=== PATIENT | female | born 1940 | race African-American/Black ===

== ENCOUNTER 2018-03-26 03:09 | Inpatient (IN) ==
[2018-03-26] MEDS ORDERED: ALBUTEROL/IPRATROPIUM 3 ML NEB RESP TX STA (03:53)
[2018-03-26 04:23] LABS: Alanine Aminotransferase 22 U/L (13-56); Albumin 3.5 G/DL (3.4-5.0); Alkaline Phosphatase 125 U/L (45-117); Aspartate Amino Transferase 20 U/L (0-37); Blood Urea Nitrogen 15 MG/DL (7-18); Glucose 273 MG/DL (74-106); Osmolality,Calculated 287.5 MOS/KG (273-304); Potassium 4.2 MMOL/L (3.5-5.1); Sodium 139 MMOL/L (136-145); Troponin I Only < 0.015 NG/ML (0.00-0.045)
[2018-03-26 08:28] LABS: Basophils % 0.3 % (0.0-0.8); Hematocrit 25.1 VOL% (35.7-47.0); Immature Granulocytes % 4.9 %; Lymphocytes # 1.2 10*3/uL (1.4-4.0); Lymphocytes % 18.9 % (21.3-54.2); Mean Corpuscular HGB Conc 31.9 GM/DL (32-36); Mean Corpuscular Hemoglobin 29 PG (27-34); Mean Corpuscular Volume 90.9 FL (87-102); Monocytes # 0.7 10*3/uL (0.11-0.8); Monocytes % 10.9 % (1.7-12.7); Red Blood Count 2.76 MC/CUMM (3.8-5.5); Red Cell Distribution Width 17.6 % (9.3-17.3); White Blood Count 6.2 T/CUMM (4-12)
[2018-03-26 08:47] LABS: Platelet Count 28 T/CUMM (130-400)
[2018-03-26 08:57] LABS: Anisocytosis 1+; Atypical Lymphocytes Few; Band Neutrophils 2 % (0-10); Hypochromasia 1+; Lymphocytes 28 % (20-55); Microcytosis 1+; Myelocytes 1 %; Polychromasia Slight; Segmented Neutrophils 65 % (50-85); Total Cells Counted 100
[2018-03-26 08:58] LABS: Ovalocytes Few; Platelet Estimate Decreased
[2018-03-26] MEDS ORDERED: DEXTROSE 50% 25 GM/50 ML VIAL IV PRN ×2 (10:41→15:55)
[2018-03-26] MEDS ORDERED: GLUCAGON 1 MG VIAL IM PRN ×2 (10:41→15:55)
[2018-03-26] MEDS ORDERED: POTASSIUM CHLORIDE RIDER 10 MEQ in PREMIX 1 EACH IV PRN (11:17)
[2018-03-26] MEDS ORDERED: MAGNESIUM SULF RIDER 2 GM in PREMIX 1 EACH IV PRN (11:17)
[2018-03-26] MEDS ORDERED: MAGNESIUM SULF RIDER 4 GM in PREMIX 1 EACH IV PRN (11:17)
[2018-03-26] MEDS: cefTRIAXone 1,000 MG in SYRINGE 1 EACH IV SCH (12:30)
[2018-03-26 12:39] LABS: Free T4 (Free Thyroxine) 0.97 NG/DL (0.76-1.46); Risk Ratio 2.63; VLDL CHOLESTEROL 20.4 MG/DL
[2018-03-26 12:47] LABS: Apearance,Urine CLEAR (Clear); Bilirubin,Urine Negative (Negative); Blood, Urine Small mg/dL (Negative); Glucose,Urine (UA) 50 mg/dL (Negative); Ketones,Urine Negative (Negative); Nitrite,Urine Negative (Negative); Protein,Urine 100 MG/DL; RBC,Urine 6 /HPF (0-4); Squamous Epithelial Cell,Urine Occasional /HPF (0-10); Urine Color Yellow (Yellow); Urine Specific Gravity 1.032 (1.001-1.035); Urine Urobilinogen < 2.0 EU/DL (0.2-1.0); WBC,Urine 1 /HPF (0-6)
[2018-03-26] MEDS: AZITHROMYCIN INJ 500 MG in SODIUM CHLORIDE 0.9% 250 ML IV SCH (12:49)
[2018-03-26] MEDS: ALBUTEROL/IPRATROPIUM 3 ML NEB RESP TX SCH ×2 (14:51→19:21)
[2018-03-26] MEDS ORDERED: FUROSEMIDE 40 MG/4 ML VIAL IV ONE (15:53)
[2018-03-26 16:22] LABS: Basophils % 0.3 % (0.0-0.8); Eosinophils % 0.2 % (0.00-10.9); Hematocrit 26.3 VOL% (35.7-47.0); Immature Granulocytes Absolute 0.31 #; Lymphocytes # 1.5 10*3/uL (1.4-4.0); Lymphocytes % 23.5 % (21.3-54.2); Mean Corpuscular HGB Conc 30.4 GM/DL (32-36); Mean Corpuscular Hemoglobin 28 PG (27-34); Mean Corpuscular Volume 92.6 FL (87-102); Monocytes # 0.8 10*3/uL (0.11-0.8); Monocytes % 12.3 % (1.7-12.7); NRBC # 0.02 10*3/uL; Neutrophils # 3.6 10*3/uL (1.4-7.4); Neutrophils % 58.7 % (38.7-73.9); Red Blood Count 2.84 MC/CUMM (3.8-5.5); Red Cell Distribution Width 17.7 % (9.3-17.3); White Blood Count 6.2 T/CUMM (4-12)
[2018-03-26 16:25] LABS: Platelet Count 33 T/CUMM (130-400)
[2018-03-26 16:42] LABS: Eosinophils 1 % (0-10); Lymphocytes 24 % (20-55); Myelocytes 1 %; Promyelocytes 1 %; Segmented Neutrophils 60 % (50-85); Total Cells Counted 100
[2018-03-26 16:43] LABS: Anisocytosis 1+; Macrocytosis 1+
[2018-03-26 16:45] LABS: Hypochromasia 2+; Platelet Estimate Decreased; Schistocytes Few
[2018-03-26 16:46] LABS: Polychromasia Few
[2018-03-26] MEDS: amLODIPine 10 MG TABLET PO SCH (17:38)
[2018-03-26] MEDS: INSULIN LISPRO 100 UNIT/ML SUBCUT SCH ×2 (17:38→21:37)
[2018-03-26] MEDS: POTASSIUM CHLORIDE 20 MEQ TABLET PO SCH (20:46)
[2018-03-26] MEDS: METOPROLOL TARTRATE 100 MG TABLET PO SCH (20:46)
[2018-03-26] MEDS: MAGNESIUM OXIDE 400 MG TABLET PO SCH (20:47)
[2018-03-26] MEDS: FERROUS SULFATE 325 MG TABLET PO SCH (20:47)
[2018-03-26] MEDS: guaiFENesin/DM ER 600-30 MG TABLET PO SCH (20:47)
[2018-03-26] MEDS: INSULIN GLARGINE 100 UNIT/ML SUBCUT SCH (21:38)
[2018-03-27] MEDS: ALBUTEROL/IPRATROPIUM 3 ML NEB RESP TX SCH ×4 (01:50→20:38)
[2018-03-27 05:29] LABS: Basophils % 0.4 % (0.0-0.8); Hematocrit 26.7 VOL% (35.7-47.0); Hemoglobin 8.3 GM/DL (12.0-16.0); Immature Granulocytes % 4.8 %; Immature Granulocytes Absolute 0.25 #; Lymphocytes % 18.4 % (21.3-54.2); Mean Corpuscular HGB Conc 31.1 GM/DL (32-36); Mean Corpuscular Hemoglobin 28 PG (27-34); Mean Corpuscular Volume 90.8 FL (87-102); Monocytes # 0.6 10*3/uL (0.11-0.8); Monocytes % 10.7 % (1.7-12.7); Neutrophils # 3.4 10*3/uL (1.4-7.4); Neutrophils % 65.7 % (38.7-73.9); Red Blood Count 2.94 MC/CUMM (3.8-5.5); Red Cell Distribution Width 17.4 % (9.3-17.3); White Blood Count 5.2 T/CUMM (4-12)
[2018-03-27 05:34] LABS: Platelet Count 27 T/CUMM (130-400)
[2018-03-27 06:02] LABS: Band Neutrophils 1 % (0-10); Lymphocytes 11 % (20-55); Segmented Neutrophils 75 % (50-85)
[2018-03-27 06:03] LABS: Hypochromasia 1+; Ovalocytes 1+; Polychromasia Few
[2018-03-27 06:04] LABS: Albumin 2.9 G/DL (3.4-5.0); Anisocytosis 1+; Bilirubin,Total 1.3 MG/DL (0.2-1.0); Calcium 8.7 MG/DL (8.5-10.1); Macrocytosis 1+; Osmolality,Calculated 288.7 MOS/KG (273-304); Total Protein 5.9 G/DL (6.4-8.3)
[2018-03-27 06:05] LABS: Elliptocytes Few; Platelet Estimate Decreased; Total Cells Counted 100
[2018-03-27] MEDS: INSULIN LISPRO 100 UNIT/ML SUBCUT SCH ×4 (08:58→21:52)
[2018-03-27] MEDS: POTASSIUM CHLORIDE 20 MEQ TABLET PO SCH ×2 (08:59→21:49)
[2018-03-27] MEDS: glipiZIDE 10 MG TABLET PO SCH (08:59)
[2018-03-27] MEDS: MAGNESIUM OXIDE 400 MG TABLET PO SCH ×2 (09:00→21:50)
[2018-03-27] MEDS: METOPROLOL TARTRATE 100 MG TABLET PO SCH ×2 (09:00→21:50)
[2018-03-27] MEDS: amLODIPine 10 MG TABLET PO SCH (09:00)
[2018-03-27] MEDS: guaiFENesin/DM ER 600-30 MG TABLET PO SCH ×2 (09:00→21:50)
[2018-03-27] MEDS: FERROUS SULFATE 325 MG TABLET PO SCH ×2 (09:00→21:50)
[2018-03-27] MEDS: FLUoxetine 10 MG CAPSULE PO SCH (09:00)
[2018-03-27] MEDS: cefTRIAXone 1,000 MG in SYRINGE 1 EACH IV SCH (11:15)
[2018-03-27] MEDS: AZITHROMYCIN INJ 500 MG in SODIUM CHLORIDE 0.9% 250 ML IV SCH (13:16)
[2018-03-27] MEDS ORDERED: FUROSEMIDE 40 MG/4 ML VIAL IV ONE (13:51)
[2018-03-27] MEDS: INSULIN GLARGINE 100 UNIT/ML SUBCUT SCH (21:51)
[2018-03-28] MEDS: ALBUTEROL/IPRATROPIUM 3 ML NEB RESP TX SCH ×4 (00:13→19:40)
[2018-03-28] MEDS: ALBUTEROL 2.5 MG/3 ML NEB RESP TX PRN (05:30)
[2018-03-28] MEDS: FUROSEMIDE 40 MG/4 ML VIAL IV SCH ×2 (05:43→15:55)
[2018-03-28] MEDS: INSULIN LISPRO 100 UNIT/ML SUBCUT SCH ×4 (08:23→21:48)
[2018-03-28] MEDS: guaiFENesin/DM ER 600-30 MG TABLET PO SCH ×2 (08:25→21:48)
[2018-03-28] MEDS: FLUoxetine 10 MG CAPSULE PO SCH (08:25)
[2018-03-28] MEDS: FERROUS SULFATE 325 MG TABLET PO SCH ×2 (08:25→21:48)
[2018-03-28] MEDS: POTASSIUM CHLORIDE 20 MEQ TABLET PO SCH ×2 (08:25→21:47)
[2018-03-28] MEDS: MAGNESIUM OXIDE 400 MG TABLET PO SCH ×2 (08:25→21:48)
[2018-03-28] MEDS: METOPROLOL TARTRATE 100 MG TABLET PO SCH ×2 (08:25→21:48)
[2018-03-28] MEDS: amLODIPine 10 MG TABLET PO SCH (08:25)
[2018-03-28] MEDS: glipiZIDE 10 MG TABLET PO SCH (08:25)
[2018-03-28] MEDS: AZITHROMYCIN INJ 500 MG in SODIUM CHLORIDE 0.9% 250 ML IV SCH (12:42)
[2018-03-28] MEDS: cefTRIAXone 1,000 MG in SYRINGE 1 EACH IV SCH (12:42)
[2018-03-28 17:58] LABS: PT Patient Result 10.6 SECS
[2018-03-28 18:25] LABS: Total Protein 6.3 G/DL (6.4-8.3)
[2018-03-28] MEDS: INSULIN GLARGINE 100 UNIT/ML SUBCUT SCH (21:48)
[2018-03-29] MEDS: ALBUTEROL/IPRATROPIUM 3 ML NEB RESP TX SCH ×4 (00:23→19:35)
[2018-03-29] MEDS: INSULIN LISPRO 100 UNIT/ML SUBCUT SCH ×4 (08:44→20:47)
[2018-03-29] MEDS: FUROSEMIDE 40 MG/4 ML VIAL IV SCH ×2 (09:18→16:06)
[2018-03-29] MEDS: FLUoxetine 10 MG CAPSULE PO SCH (09:19)
[2018-03-29] MEDS: METOPROLOL TARTRATE 100 MG TABLET PO SCH ×2 (09:19→20:46)
[2018-03-29] MEDS: glipiZIDE 10 MG TABLET PO SCH (09:19)
[2018-03-29] MEDS: guaiFENesin/DM ER 600-30 MG TABLET PO SCH ×2 (09:19→20:46)
[2018-03-29] MEDS: POTASSIUM CHLORIDE 20 MEQ TABLET PO SCH ×2 (09:20→20:46)
[2018-03-29] MEDS: FERROUS SULFATE 325 MG TABLET PO SCH ×2 (09:20→20:46)
[2018-03-29] MEDS: amLODIPine 10 MG TABLET PO SCH (09:20)
[2018-03-29] MEDS: MAGNESIUM OXIDE 400 MG TABLET PO SCH ×2 (09:20→20:46)
[2018-03-29] MEDS ORDERED: SODIUM CHLORIDE 0.9% 1,000 ML IV PRN (09:43)
[2018-03-29] MEDS: cefTRIAXone 1,000 MG in SYRINGE 1 EACH IV SCH (11:14)
[2018-03-29] MEDS: AZITHROMYCIN INJ 500 MG in SODIUM CHLORIDE 0.9% 250 ML IV SCH (11:16)
[2018-03-29 16:01] LABS: Total Protein,Pleural Fluid 2.5 G/DL
[2018-03-29 16:58] LABS: RBC,Pleural Fluid > 100000 T/CUMM
[2018-03-29 17:20] LABS: Lymphocytes,Pleural Fluid 73 %; Monocytes,Pleural Fluid 11 %; Neutrophils,Pleural Fluid 16 %
[2018-03-29] MEDS: INSULIN GLARGINE 100 UNIT/ML SUBCUT SCH (20:46)
[2018-03-30] MEDS: ALBUTEROL/IPRATROPIUM 3 ML NEB RESP TX SCH ×4 (00:26→19:55)
[2018-03-30 05:56] LABS: Basophils % 0.4 % (0.0-0.8); Eosinophils % 0.2 % (0.00-10.9); Hematocrit 25.3 VOL% (35.7-47.0); Hemoglobin 7.7 GM/DL (12.0-16.0); Immature Granulocytes % 4.6 %; Immature Granulocytes Absolute 0.25 #; Lymphocytes % 18.2 % (21.3-54.2); Mean Corpuscular HGB Conc 30.4 GM/DL (32-36); Mean Corpuscular Hemoglobin 28 PG (27-34); Mean Corpuscular Volume 91.7 FL (87-102); Mean Platelet Volume 9.9 FL (9.6-12.0); Monocytes # 0.5 10*3/uL (0.11-0.8); Monocytes % 8.8 % (1.7-12.7); Neutrophils # 3.7 10*3/uL (1.4-7.4); Neutrophils % 67.8 % (38.7-73.9); Platelet Count 175 T/CUMM (130-400); Red Blood Count 2.76 MC/CUMM (3.8-5.5); Red Cell Distribution Width 18.3 % (9.3-17.3); White Blood Count 5.5 T/CUMM (4-12)
[2018-03-30 06:23] LABS: Hypochromasia 2+; Lymphocytes 24 % (20-55); Segmented Neutrophils 69 % (50-85); Total Cells Counted 100
[2018-03-30 06:24] LABS: Microcytosis 1+; Ovalocytes Slight; Platelet Estimate Adequate
[2018-03-30 06:25] LABS: Atypical Lymphocytes Few
[2018-03-30 06:27] LABS: Calcium 8.5 MG/DL (8.5-10.1); Potassium 4.1 MMOL/L (3.5-5.1)
[2018-03-30] MEDS ORDERED: SODIUM CHLORIDE 0.9% 1,000 ML IV PRN (07:32)
[2018-03-30] MEDS ORDERED: FUROSEMIDE 20 MG/2 ML VIAL IV ONE (07:34)
[2018-03-30] MEDS: FUROSEMIDE 40 MG/4 ML VIAL IV SCH ×2 (09:18→15:36)
[2018-03-30] MEDS: POTASSIUM CHLORIDE 20 MEQ TABLET PO SCH ×2 (09:19→22:27)
[2018-03-30] MEDS: guaiFENesin/DM ER 600-30 MG TABLET PO SCH ×2 (09:20→22:27)
[2018-03-30] MEDS: FERROUS SULFATE 325 MG TABLET PO SCH ×2 (09:20→22:27)
[2018-03-30] MEDS: glipiZIDE 10 MG TABLET PO SCH (09:20)
[2018-03-30] MEDS: MAGNESIUM OXIDE 400 MG TABLET PO SCH ×2 (09:20→22:27)
[2018-03-30] MEDS: amLODIPine 10 MG TABLET PO SCH (09:20)
[2018-03-30] MEDS: METOPROLOL TARTRATE 100 MG TABLET PO SCH ×2 (09:29→22:27)
[2018-03-30] MEDS: FLUoxetine 10 MG CAPSULE PO SCH (09:29)
[2018-03-30] MEDS: INSULIN LISPRO 100 UNIT/ML SUBCUT SCH ×4 (09:29→22:26)
[2018-03-30] MEDS: AZITHROMYCIN INJ 500 MG in SODIUM CHLORIDE 0.9% 250 ML IV SCH (10:46)
[2018-03-30] MEDS: cefTRIAXone 1,000 MG in SYRINGE 1 EACH IV SCH (12:31)
[2018-03-30] MEDS: INSULIN GLARGINE 100 UNIT/ML SUBCUT SCH (22:28)
[2018-03-31] MEDS: ALBUTEROL/IPRATROPIUM 3 ML NEB RESP TX SCH ×4 (01:03→19:09)
[2018-03-31 05:58] LABS: Basophils # 0.1 10*3/uL (0.0-0.2); Basophils % 0.9 % (0.0-0.8); Eosinophils % 0.6 % (0.00-10.9); Hematocrit 31.8 VOL% (35.7-47.0); Hemoglobin 10.1 GM/DL (12.0-16.0); Immature Granulocytes % 5.1 %; Immature Granulocytes Absolute 0.28 #; Lymphocytes # 1.2 10*3/uL (1.4-4.0); Lymphocytes % 22.4 % (21.3-54.2); Mean Corpuscular HGB Conc 31.8 GM/DL (32-36); Mean Corpuscular Hemoglobin 29 PG (27-34); Mean Corpuscular Volume 89.6 FL (87-102); Mean Platelet Volume 10.9 FL (9.6-12.0); Monocytes # 0.6 10*3/uL (0.11-0.8); Monocytes % 10.7 % (1.7-12.7); Neutrophils # 3.3 10*3/uL (1.4-7.4); Neutrophils % 60.3 % (38.7-73.9); Platelet Count 114 T/CUMM (130-400); Red Blood Count 3.55 MC/CUMM (3.8-5.5); Red Cell Distribution Width 17.8 % (9.3-17.3); White Blood Count 5.4 T/CUMM (4-12)
[2018-03-31 06:22] LABS: Band Neutrophils 1 % (0-10); Lymphocytes 28 % (20-55); Segmented Neutrophils 61 % (50-85); Total Cells Counted 100
[2018-03-31 06:23] LABS: Anisocytosis 1+; Hypochromasia 1+; Macrocytosis Slight; Microcytosis Slight
[2018-03-31 06:24] LABS: Platelet Estimate Decreased; Polychromasia Slight
[2018-03-31 06:39] LABS: Calcium 8.2 MG/DL (8.5-10.1); Potassium 4.1 MMOL/L (3.5-5.1)
[2018-03-31] MEDS: ALBUTEROL 2.5 MG/3 ML NEB RESP TX PRN ×2 (08:14→08:17)
[2018-03-31] MEDS: INSULIN LISPRO 100 UNIT/ML SUBCUT SCH ×5 (09:04→21:07)
[2018-03-31] MEDS: FERROUS SULFATE 325 MG TABLET PO SCH ×2 (09:09→21:01)
[2018-03-31] MEDS: METOPROLOL TARTRATE 100 MG TABLET PO SCH ×2 (09:09→21:03)
[2018-03-31] MEDS: glipiZIDE 10 MG TABLET PO SCH (09:09)
[2018-03-31] MEDS: amLODIPine 10 MG TABLET PO SCH (09:09)
[2018-03-31] MEDS: FUROSEMIDE 40 MG/4 ML VIAL IV SCH ×2 (09:09→16:13)
[2018-03-31] MEDS: guaiFENesin/DM ER 600-30 MG TABLET PO SCH ×2 (09:09→21:01)
[2018-03-31] MEDS: MAGNESIUM OXIDE 400 MG TABLET PO SCH ×2 (09:09→21:01)
[2018-03-31] MEDS: FLUoxetine 10 MG CAPSULE PO SCH (09:09)
[2018-03-31] MEDS: POTASSIUM CHLORIDE 20 MEQ TABLET PO SCH ×2 (09:09→21:01)
[2018-03-31] MEDS: cefTRIAXone 1,000 MG in SYRINGE 1 EACH IV SCH (11:25)
[2018-03-31] MEDS: AZITHROMYCIN INJ 500 MG in SODIUM CHLORIDE 0.9% 250 ML IV SCH (11:30)
[2018-03-31] MEDS: INSULIN GLARGINE 100 UNIT/ML SUBCUT SCH ×2 (21:01→21:09)
[2018-04-01] MEDS: ALBUTEROL/IPRATROPIUM 3 ML NEB RESP TX SCH ×3 (00:10→13:28)
[2018-04-01 05:38] LABS: Basophils % 0.4 % (0.0-0.8); Eosinophils # 0.1 10*3/uL (0.0-0.87); Hematocrit 31.5 VOL% (35.7-47.0); Hemoglobin 9.9 GM/DL (12.0-16.0); Immature Granulocytes % 4.3 %; Immature Granulocytes Absolute 0.21 #; Lymphocytes # 1.3 10*3/uL (1.4-4.0); Mean Corpuscular HGB Conc 31.4 GM/DL (32-36); Mean Corpuscular Hemoglobin 29 PG (27-34); Mean Corpuscular Volume 90.8 FL (87-102); Mean Platelet Volume 10.1 FL (9.6-12.0); Monocytes # 0.6 10*3/uL (0.11-0.8); Monocytes % 12.5 % (1.7-12.7); Neutrophils # 2.7 10*3/uL (1.4-7.4); Neutrophils % 55.8 % (38.7-73.9); Platelet Count 93 T/CUMM (130-400); Red Blood Count 3.47 MC/CUMM (3.8-5.5); Red Cell Distribution Width 17.7 % (9.3-17.3); White Blood Count 4.9 T/CUMM (4-12)
[2018-04-01 06:04] LABS: Calcium 8.6 MG/DL (8.5-10.1); Potassium 4.2 MMOL/L (3.5-5.1)
[2018-04-01 06:42] LABS: Hypochromasia 2+; Lymphocytes 17 % (20-55); Platelet Estimate Decreased; Segmented Neutrophils 74 % (50-85); Total Cells Counted 100
[2018-04-01] MEDS: glipiZIDE 10 MG TABLET PO SCH (09:20)
[2018-04-01] MEDS: POTASSIUM CHLORIDE 20 MEQ TABLET PO SCH (09:20)
[2018-04-01] MEDS: FLUoxetine 10 MG CAPSULE PO SCH (09:20)
[2018-04-01] MEDS: METOPROLOL TARTRATE 100 MG TABLET PO SCH (09:20)
[2018-04-01] MEDS: FUROSEMIDE 40 MG/4 ML VIAL IV SCH ×2 (09:20→09:24)
[2018-04-01] MEDS: amLODIPine 10 MG TABLET PO SCH (09:20)
[2018-04-01] MEDS: guaiFENesin/DM ER 600-30 MG TABLET PO SCH (09:20)
[2018-04-01] MEDS: FERROUS SULFATE 325 MG TABLET PO SCH (09:20)
[2018-04-01] MEDS: MAGNESIUM OXIDE 400 MG TABLET PO SCH (09:20)
[2018-04-01] MEDS: INSULIN LISPRO 100 UNIT/ML SUBCUT SCH ×2 (09:21→12:50)
[2018-04-01 11:46] VITALS: BP 142/69
[2018-04-01] MEDS: AZITHROMYCIN INJ 500 MG in SODIUM CHLORIDE 0.9% 250 ML IV SCH (12:50)
[2018-04-01] MEDS: cefTRIAXone 1,000 MG in SYRINGE 1 EACH IV SCH (12:50)
== END 2018-04-01 13:45 | disposition home health service (06) | DRG 291 ==
LOC: EDBD → EDUNIT# → N.ED 03:09 → SUATTDRO 08:26 → N.EDINP 14:11 → N.TELEN 14:14
PROVIDERS: ADMIT Internal Medicine; ATTEND Internal Medicine

== ENCOUNTER 2018-06-29 12:37 | Observation (INO) ==
[2018-06-29 13:27] LABS: Basophils % 0.5 % (0.0-0.8); Hematocrit 29.6 VOL% (35.7-47.0); Immature Granulocytes % 2.8 %; Immature Granulocytes Absolute 0.11 #; Lymphocytes # 1.3 10*3/uL (1.4-4.0); Lymphocytes % 32.4 % (21.3-54.2); Mean Corpuscular HGB Conc 30.4 GM/DL (32-36); Mean Corpuscular Hemoglobin 29 PG (27-34); Mean Corpuscular Volume 95.2 FL (87-102); Monocytes # 0.4 10*3/uL (0.11-0.8); Monocytes % 9.3 % (1.7-12.7); Neutrophils # 2.1 10*3/uL (1.4-7.4); Red Blood Count 3.11 MC/CUMM (3.8-5.5); Red Cell Distribution Width 18.2 % (9.3-17.3); White Blood Count 3.9 T/CUMM (4-12)
[2018-06-29 13:47] LABS: Platelet Count 52 T/CUMM (130-400)
[2018-06-29 13:54] LABS: Albumin 3.3 G/DL (3.4-5.0); Bilirubin,Total 0.9 MG/DL (0.2-1.0); Calcium 8.8 MG/DL (8.5-10.1); Osmolality,Calculated 285.3 MOS/KG (273-304); Potassium 4.3 MMOL/L (3.5-5.1); Total Protein 7.3 G/DL (6.4-8.3)
[2018-06-29 13:55] LABS: PT Patient Result 10.6 SECS; Partial Thromboplastin Time 26.8 SECS (0-40)
[2018-06-29 14:12] LABS: % Iron Saturation 16.8 % (18-50); Ferritin 541.9 ng/ml (8-252)
[2018-06-29 14:13] LABS: Folate 12.2 NG/ML (5.4-24.0)
[2018-06-29] MEDS ORDERED: ONDANSETRON 4 MG/2 ML VIAL IV STA ×2 (14:38→14:42)
[2018-06-29] MEDS ORDERED: ONDANSETRON 4 MG/2 ML VIAL ONE (14:39)
[2018-06-29 16:36] LABS: Lymphocytes,Pleural Fluid 91 %; Monocytes,Pleural Fluid 3 %; Neutrophils,Pleural Fluid 6 %
[2018-06-29 16:37] LABS: RBC,Pleural Fluid 92963 T/CUMM
[2018-06-29] MEDS ORDERED: ACETAMINOPHEN 325 MG TABLET PO PRN (17:25)
[2018-06-29] MEDS ORDERED: ONDANSETRON 4 MG/2 ML VIAL IV PRN (17:25)
[2018-06-29] MEDS ORDERED: ALBUTEROL 2.5 MG/3 ML NEB RESP TX PRN (17:33)
[2018-06-29] MEDS: ALBUTEROL/IPRATROPIUM 3 ML NEB RESP TX SCH ×2 (19:40→23:43)
[2018-06-29] MEDS: FERROUS SULFATE 325 MG TABLET PO SCH (20:25)
[2018-06-29] MEDS: METOPROLOL TARTRATE 100 MG TABLET PO SCH (20:25)
[2018-06-29] MEDS: MAGNESIUM OXIDE 400 MG TABLET PO SCH (20:25)
[2018-06-29] MEDS: POTASSIUM CHLORIDE 20 MEQ TABLET PO SCH (20:25)
[2018-06-29] MEDS: INSULIN GLARGINE 100 UNIT/ML SUBCUT SCH (20:27)
[2018-06-29] MEDS: FUROSEMIDE 40 MG TABLET PO SCH (20:30)
[2018-06-30 04:56] LABS: Basophils % 0.3 % (0.0-0.8); Eosinophils % 0.3 % (0.00-10.9); Hematocrit 24.8 VOL% (35.7-47.0); Hemoglobin 7.5 GM/DL (12.0-16.0); Immature Granulocytes Absolute 0.07 #; Lymphocytes # 1.3 10*3/uL (1.4-4.0); Mean Corpuscular HGB Conc 30.2 GM/DL (32-36); Mean Corpuscular Hemoglobin 29 PG (27-34); Mean Corpuscular Volume 95.8 FL (87-102); Monocytes # 0.5 10*3/uL (0.11-0.8); Monocytes % 15.3 % (1.7-12.7); Neutrophils # 1.6 10*3/uL (1.4-7.4); Neutrophils % 46.1 % (38.7-73.9); Red Blood Count 2.59 MC/CUMM (3.8-5.5); Red Cell Distribution Width 18.2 % (9.3-17.3); White Blood Count 3.5 T/CUMM (4-12)
[2018-06-30 05:02] LABS: Platelet Count 27 T/CUMM (130-400)
[2018-06-30 05:28] LABS: Calcium 8.5 MG/DL (8.5-10.1); Potassium 4.5 MMOL/L (3.5-5.1)
[2018-06-30 06:14] LABS: Atypical Lymphocytes Few; Hypochromasia 1+; Lymphocytes 34 % (20-55); Myelocytes 1 %; Segmented Neutrophils 49 % (50-85); Total Cells Counted 100
[2018-06-30 06:15] LABS: Microcytosis 1+; Ovalocytes Slight; Platelet Estimate Decreased
[2018-06-30] MEDS: ALBUTEROL/IPRATROPIUM 3 ML NEB RESP TX SCH ×3 (07:13→19:44)
[2018-06-30] MEDS ORDERED: amLODIPine 10 MG TABLET PO SCH (09:00)
[2018-06-30] MEDS ORDERED: glipiZIDE 10 MG TABLET PO SCH (09:00)
[2018-06-30] MEDS ORDERED: PANTOPRAZOLE 40 MG TABLET PO SCH (09:00)
[2018-06-30] MEDS ORDERED: FLUoxetine 10 MG CAPSULE PO SCH (09:00)
[2018-06-30] MEDS ORDERED: ASPIRIN CHEW 81 MG TABLET PO SCH (09:00)
[2018-06-30] MEDS: METOPROLOL TARTRATE 100 MG TABLET PO SCH ×2 (09:27→21:04)
[2018-06-30] MEDS: FUROSEMIDE 40 MG TABLET PO SCH ×2 (09:27→21:04)
[2018-06-30] MEDS: MAGNESIUM OXIDE 400 MG TABLET PO SCH ×2 (09:27→21:04)
[2018-06-30] MEDS: FERROUS SULFATE 325 MG TABLET PO SCH ×2 (09:27→21:04)
[2018-06-30] MEDS: POTASSIUM CHLORIDE 20 MEQ TABLET PO SCH ×2 (09:27→21:04)
[2018-06-30] MEDS ORDERED: SODIUM CHLORIDE 0.9% 1,000 ML IV PRN (11:04)
[2018-06-30 20:26] LABS: Hematocrit 32.4 VOL% (35.7-47.0)
[2018-06-30 20:48] VITALS: BP 140/67
[2018-06-30] MEDS: INSULIN GLARGINE 100 UNIT/ML SUBCUT SCH (21:05)
== END 2018-06-30 21:20 | disposition home or self-care (01) ==
LOC: EDBD → EDUNIT# → N.EDINP 12:37 → N.ED 12:37 → N.4E 19:17
PROVIDERS: ADMIT Internal Medicine; ATTEND Internal Medicine

== ENCOUNTER 2018-08-04 20:03 | Inpatient (IN) ==
[2018-08-04 21:37] LABS: Basophils % 0.2 % (0.0-0.8); Eosinophils % 0.4 % (0.00-10.9); Hematocrit 28.1 VOL% (35.7-47.0); Hemoglobin 8.6 GM/DL (12.0-16.0); Immature Granulocytes % 2.5 %; Immature Granulocytes Absolute 0.14 #; Lymphocytes # 1.1 10*3/uL (1.4-4.0); Lymphocytes % 19.7 % (21.3-54.2); Mean Corpuscular HGB Conc 30.6 GM/DL (32-36); Mean Corpuscular Hemoglobin 29 PG (27-34); Mean Corpuscular Volume 94.6 FL (87-102); Monocytes # 0.9 10*3/uL (0.11-0.8); Monocytes % 15.8 % (1.7-12.7); Neutrophils # 3.5 10*3/uL (1.4-7.4); Neutrophils % 61.4 % (38.7-73.9); Red Blood Count 2.97 MC/CUMM (3.8-5.5); Red Cell Distribution Width 17.2 % (9.3-17.3); White Blood Count 5.7 T/CUMM (4-12)
[2018-08-04 21:47] LABS: Partial Thromboplastin Time 28.6 SECS (0-40)
[2018-08-04 21:51] LABS: Platelet Count 28 T/CUMM (130-400)
[2018-08-04 21:56] LABS: Albumin 3.2 G/DL (3.4-5.0); Bilirubin,Total 0.7 MG/DL (0.2-1.0); Calcium 8.5 MG/DL (8.5-10.1)
[2018-08-04 21:57] LABS: Osmolality,Calculated 290.1 MOS/KG (273-304); Potassium 4.4 MMOL/L (3.5-5.1)
[2018-08-04 22:11] LABS: Band Neutrophils 3 % (0-10); Lymphocytes 23 % (20-55); Segmented Neutrophils 59 % (50-85); Total Cells Counted 100
[2018-08-04 22:12] LABS: Anisocytosis 1+; Macrocytosis 2+; Platelet Estimate Decreased
[2018-08-04] MEDS ORDERED: FUROSEMIDE 40 MG/4 ML VIAL IV STA (22:15)
[2018-08-04 22:42] LABS: ABG Base Excess 5.5 MMOL/L (-2.5-2.5); ABG HCO3 29.4 MMOL/L (20-26); ABG Oxygen Saturation 94.9 % (95-100); ABG PCO2 54.4 MM HG (35-48); ABG PH 7.375 (7.35-7.45); ABG PO2 77.1 MM HG (80-95); ABG TCO2 29.4 MMOL/L (23-27); Allen Test Positive
[2018-08-05] MEDS ORDERED: GLUCAGON 1 MG VIAL IM PRN ×2 (01:45→12:38)
[2018-08-05] MEDS ORDERED: ACETAMINOPHEN 325 MG TABLET PO PRN (01:45)
[2018-08-05] MEDS ORDERED: DEXTROSE 50% 25 GM/50 ML VIAL IV PRN ×2 (01:45→12:38)
[2018-08-05] MEDS ORDERED: ONDANSETRON 4 MG/2 ML VIAL IV PRN (01:45)
[2018-08-05 05:25] LABS: Basophils % 0.4 % (0.0-0.8); Hematocrit 27.8 VOL% (35.7-47.0); Hemoglobin 8.7 GM/DL (12.0-16.0); Immature Granulocytes % 2.1 %; Immature Granulocytes Absolute 0.11 #; Lymphocytes # 1.4 10*3/uL (1.4-4.0); Lymphocytes % 25.7 % (21.3-54.2); Mean Corpuscular HGB Conc 31.3 GM/DL (32-36); Mean Corpuscular Hemoglobin 29 PG (27-34); Monocytes # 0.9 10*3/uL (0.11-0.8); Monocytes % 16.3 % (1.7-12.7); Neutrophils # 2.9 10*3/uL (1.4-7.4); Neutrophils % 55.5 % (38.7-73.9); Red Blood Count 2.99 MC/CUMM (3.8-5.5); Red Cell Distribution Width 16.9 % (9.3-17.3); White Blood Count 5.3 T/CUMM (4-12)
[2018-08-05 05:35] LABS: Platelet Count 25 T/CUMM (130-400)
[2018-08-05] MEDS: INSULIN LISPRO 100 UNIT/ML SUBCUT SCH ×3 (05:51→18:34)
[2018-08-05 05:58] LABS: Band Neutrophils 2 % (0-10); Calcium 9.2 MG/DL (8.5-10.1); Lymphocytes 33 % (20-55); Osmolality,Calculated 289.3 MOS/KG (273-304); Platelet Estimate Decreased; Potassium 3.7 MMOL/L (3.5-5.1); Segmented Neutrophils 55 % (50-85); Total Cells Counted 100
[2018-08-05 05:59] LABS: Macrocytosis 1+
[2018-08-05] MEDS ORDERED: FUROSEMIDE 40 MG/4 ML VIAL IV SCH (08:00)
[2018-08-05 08:24] LABS: Apearance,Urine CLEAR (Clear); Bacteria,Urine Occasional /HPF (Few); Bilirubin,Urine Negative (Negative); Blood, Urine Moderate mg/dL (Negative); Glucose,Urine (UA) Negative (Negative); Hyaline Casts,Urine 2 /LPF (0-3); Ketones,Urine Negative (Negative); Mucus,Urine Occasional /LPF (Occasional); Nitrite,Urine Negative (Negative); Protein,Urine Negative; RBC,Urine 5 /HPF (0-4); Squamous Epithelial Cell,Urine Occasional /HPF (0-10); Urine Color Straw (Yellow); Urine Specific Gravity 1.005 (1.001-1.035); Urine Urobilinogen < 2.0 EU/DL (0.2-1.0); WBC,Urine 1 /HPF (0-6)
[2018-08-05] MEDS: PANTOPRAZOLE 40 MG TABLET PO SCH (08:39)
[2018-08-05 13:38] LABS: Total Protein,Pleural Fluid 3.8 G/DL
[2018-08-05 14:06] LABS: Lymphocytes,Pleural Fluid 62 %; Monocytes,Pleural Fluid 17 %; Neutrophils,Pleural Fluid 21 %
[2018-08-05 14:07] LABS: RBC,Pleural Fluid > 100000 T/CUMM
[2018-08-05] MEDS: ALBUTEROL/IPRATROPIUM 3 ML NEB RESP TX SCH (19:20)
[2018-08-05] MEDS: FUROSEMIDE 40 MG TABLET PO SCH (21:13)
[2018-08-05] MEDS: METOPROLOL TARTRATE 100 MG TABLET PO SCH (21:13)
[2018-08-05] MEDS: POTASSIUM CHLORIDE 20 MEQ TABLET PO SCH (21:15)
[2018-08-05] MEDS: MAGNESIUM OXIDE 400 MG TABLET PO SCH (21:15)
[2018-08-05] MEDS: FERROUS SULFATE 325 MG TABLET PO SCH (21:15)
[2018-08-05] MEDS: INSULIN GLARGINE 100 UNIT/ML SUBCUT SCH (21:16)
[2018-08-06] MEDS: INSULIN LISPRO 100 UNIT/ML SUBCUT SCH ×4 (00:38→18:31)
[2018-08-06] MEDS: ALBUTEROL/IPRATROPIUM 3 ML NEB RESP TX SCH ×3 (07:06→19:15)
[2018-08-06] MEDS: FERROUS SULFATE 325 MG TABLET PO SCH ×2 (11:00→20:58)
[2018-08-06] MEDS: ASPIRIN CHEW 81 MG TABLET PO SCH (11:00)
[2018-08-06] MEDS: PANTOPRAZOLE 40 MG TABLET PO SCH (11:00)
[2018-08-06] MEDS: FUROSEMIDE 40 MG TABLET PO SCH ×2 (11:00→20:58)
[2018-08-06] MEDS: amLODIPine 10 MG TABLET PO SCH (11:01)
[2018-08-06] MEDS: POTASSIUM CHLORIDE 20 MEQ TABLET PO SCH ×2 (11:01→20:59)
[2018-08-06] MEDS: glipiZIDE 10 MG TABLET PO SCH (11:01)
[2018-08-06] MEDS: FLUoxetine 10 MG CAPSULE PO SCH (11:01)
[2018-08-06] MEDS: METOPROLOL TARTRATE 100 MG TABLET PO SCH ×2 (11:02→20:59)
[2018-08-06] MEDS: MAGNESIUM OXIDE 400 MG TABLET PO SCH ×2 (11:28→20:59)
[2018-08-06] MEDS ORDERED: PIPERACILLIN/TAZOBACTAM 3,375 MG in SODIUM CHLORIDE 0.9% 100 ML IV SCH (13:00)
[2018-08-06] MEDS: CLINDAMYCIN INJ 600 MG in PREMIX 1 EACH IV SCH ×2 (14:34→21:54)
[2018-08-06] MEDS: INSULIN GLARGINE 100 UNIT/ML SUBCUT SCH (20:59)
[2018-08-07] MEDS: INSULIN LISPRO 100 UNIT/ML SUBCUT SCH ×4 (00:24→18:11)
[2018-08-07 05:27] LABS: Basophils % 0.4 % (0.0-0.8); Eosinophils % 0.6 % (0.00-10.9); Hematocrit 24.6 VOL% (35.7-47.0); Hemoglobin 7.5 GM/DL (12.0-16.0); Immature Granulocytes % 3.6 %; Immature Granulocytes Absolute 0.18 #; Lymphocytes # 1.4 10*3/uL (1.4-4.0); Lymphocytes % 27.9 % (21.3-54.2); Mean Corpuscular HGB Conc 30.5 GM/DL (32-36); Mean Corpuscular Hemoglobin 28 PG (27-34); Mean Corpuscular Volume 92.1 FL (87-102); Monocytes # 0.9 10*3/uL (0.11-0.8); Monocytes % 17.2 % (1.7-12.7); Neutrophils # 2.5 10*3/uL (1.4-7.4); Neutrophils % 50.3 % (38.7-73.9); Red Blood Count 2.67 MC/CUMM (3.8-5.5); Red Cell Distribution Width 17.2 % (9.3-17.3)
[2018-08-07 05:35] LABS: Platelet Count 23 T/CUMM (130-400)
[2018-08-07 05:38] LABS: Calcium 8.4 MG/DL (8.5-10.1); Osmolality,Calculated 290.8 MOS/KG (273-304); Potassium 3.8 MMOL/L (3.5-5.1)
[2018-08-07 05:53] LABS: Atypical Lymphocytes Few; Band Neutrophils 1 % (0-10); Hypochromasia 1+; Lymphocytes 28 % (20-55); Microcytosis 1+; Myelocytes 1 %; Ovalocytes Slight; Platelet Estimate Decreased; Segmented Neutrophils 57 % (50-85); Total Cells Counted 100
[2018-08-07] MEDS: CLINDAMYCIN INJ 600 MG in PREMIX 1 EACH IV SCH ×3 (06:04→22:45)
[2018-08-07] MEDS: ALBUTEROL/IPRATROPIUM 3 ML NEB RESP TX SCH ×3 (07:10→20:13)
[2018-08-07] MEDS ORDERED: SODIUM CHLORIDE 0.9% 1,000 ML IV PRN (08:26)
[2018-08-07] MEDS: FERROUS SULFATE 325 MG TABLET PO SCH ×2 (09:38→21:21)
[2018-08-07] MEDS: PANTOPRAZOLE 40 MG TABLET PO SCH (09:38)
[2018-08-07] MEDS: amLODIPine 10 MG TABLET PO SCH (09:39)
[2018-08-07] MEDS: ASPIRIN CHEW 81 MG TABLET PO SCH (09:39)
[2018-08-07] MEDS: POTASSIUM CHLORIDE 20 MEQ TABLET PO SCH ×2 (09:39→21:21)
[2018-08-07] MEDS: METOPROLOL TARTRATE 100 MG TABLET PO SCH ×2 (09:39→21:20)
[2018-08-07] MEDS: MAGNESIUM OXIDE 400 MG TABLET PO SCH ×2 (09:39→21:21)
[2018-08-07] MEDS: glipiZIDE 10 MG TABLET PO SCH (09:39)
[2018-08-07] MEDS: FLUoxetine 10 MG CAPSULE PO SCH (09:39)
[2018-08-07] MEDS: FUROSEMIDE 40 MG TABLET PO SCH ×2 (09:39→21:21)
[2018-08-07 20:15] LABS: Hematocrit 28.8 VOL% (35.7-47.0); Hemoglobin 8.9 GM/DL (12.0-16.0)
[2018-08-07] MEDS: INSULIN GLARGINE 100 UNIT/ML SUBCUT SCH (21:28)
[2018-08-08 05:53] LABS: Potassium 3.9 MMOL/L (3.5-5.1)
[2018-08-08 06:02] LABS: Basophils % 0.8 % (0.0-0.8); Eosinophils % 0.8 % (0.00-10.9); Hematocrit 29.9 VOL% (35.7-47.0); Hemoglobin 9.5 GM/DL (12.0-16.0); Immature Granulocytes % 4.7 %; Immature Granulocytes Absolute 0.23 #; Lymphocytes # 1.3 10*3/uL (1.4-4.0); Lymphocytes % 27.2 % (21.3-54.2); Mean Corpuscular HGB Conc 31.8 GM/DL (32-36); Mean Corpuscular Hemoglobin 29 PG (27-34); Mean Corpuscular Volume 90.3 FL (87-102); Monocytes # 0.8 10*3/uL (0.11-0.8); Monocytes % 15.8 % (1.7-12.7); Neutrophils # 2.5 10*3/uL (1.4-7.4); Neutrophils % 50.7 % (38.7-73.9); Red Cell Distribution Width 17.6 % (9.3-17.3); White Blood Count 4.9 T/CUMM (4-12)
[2018-08-08 06:05] LABS: Platelet Count 28 T/CUMM (130-400); Red Blood Count 3.31 MC/CUMM (3.8-5.5)
[2018-08-08] MEDS: CLINDAMYCIN INJ 600 MG in PREMIX 1 EACH IV SCH ×3 (06:10→21:23)
[2018-08-08 06:11] LABS: Eosinophils 1 % (0-10); Hypochromasia 1+; Lymphocytes 30 % (20-55); Microcytosis 1+; Ovalocytes Slight; Platelet Estimate Decreased; Segmented Neutrophils 52 % (50-85); Total Cells Counted 100
[2018-08-08 06:12] LABS: Atypical Lymphocytes Few
[2018-08-08] MEDS: INSULIN LISPRO 100 UNIT/ML SUBCUT SCH ×4 (07:02→17:42)
[2018-08-08] MEDS: ALBUTEROL/IPRATROPIUM 3 ML NEB RESP TX SCH ×3 (07:20→19:35)
[2018-08-08] MEDS: amLODIPine 10 MG TABLET PO SCH (09:26)
[2018-08-08] MEDS: MAGNESIUM OXIDE 400 MG TABLET PO SCH ×2 (09:26→21:24)
[2018-08-08] MEDS: glipiZIDE 10 MG TABLET PO SCH (09:26)
[2018-08-08] MEDS: POTASSIUM CHLORIDE 20 MEQ TABLET PO SCH ×2 (09:26→21:24)
[2018-08-08] MEDS: METOPROLOL TARTRATE 100 MG TABLET PO SCH ×2 (09:26→21:24)
[2018-08-08] MEDS: PANTOPRAZOLE 40 MG TABLET PO SCH (09:26)
[2018-08-08] MEDS: FUROSEMIDE 40 MG TABLET PO SCH ×2 (09:26→21:24)
[2018-08-08] MEDS: FLUoxetine 10 MG CAPSULE PO SCH (09:26)
[2018-08-08] MEDS: ASPIRIN CHEW 81 MG TABLET PO SCH (09:26)
[2018-08-08] MEDS: FERROUS SULFATE 325 MG TABLET PO SCH ×2 (09:26→21:24)
[2018-08-08] MEDS: INSULIN GLARGINE 100 UNIT/ML SUBCUT SCH (21:17)
[2018-08-09] MEDS: INSULIN LISPRO 100 UNIT/ML SUBCUT SCH ×3 (00:16→12:22)
[2018-08-09] MEDS: CLINDAMYCIN INJ 600 MG in PREMIX 1 EACH IV SCH (05:46)
[2018-08-09] MEDS: ALBUTEROL/IPRATROPIUM 3 ML NEB RESP TX SCH (07:14)
[2018-08-09] MEDS ORDERED: FUROSEMIDE 40 MG/4 ML VIAL IV ONE (08:50)
[2018-08-09] MEDS: ASPIRIN CHEW 81 MG TABLET PO SCH (09:25)
[2018-08-09] MEDS: POTASSIUM CHLORIDE 20 MEQ TABLET PO SCH (09:28)
[2018-08-09] MEDS: glipiZIDE 10 MG TABLET PO SCH (09:28)
[2018-08-09] MEDS: FUROSEMIDE 40 MG TABLET PO SCH (09:29)
[2018-08-09] MEDS: MAGNESIUM OXIDE 400 MG TABLET PO SCH (09:33)
[2018-08-09] MEDS: PANTOPRAZOLE 40 MG TABLET PO SCH (09:48)
[2018-08-09] MEDS: amLODIPine 10 MG TABLET PO SCH (09:48)
[2018-08-09] MEDS: FLUoxetine 10 MG CAPSULE PO SCH (09:49)
[2018-08-09] MEDS: METOPROLOL TARTRATE 100 MG TABLET PO SCH (10:08)
[2018-08-09] MEDS: FERROUS SULFATE 325 MG TABLET PO SCH (10:08)
[2018-08-09 11:15] VITALS: BP 143/68
[2018-08-12 11:26] LABS: Adenosine Deaminase Pleural Fl < 1.6 U/L (0.0 - 9.4); Source PLEURAL FLUID
== END 2018-08-09 12:45 | disposition home health service (06) | DRG 840 ==
LOC: EDBD → EDUNIT# → N.ED 20:03 → N.EDINP 08-05 00:28 → SUATTDRO 08-05 00:28 → N.ICU 08-05 01:38 → N.3E 08-05 17:16
PROVIDERS: ADMIT Internal Medicine; ATTEND Internal Medicine Geriatric Medicine

== ENCOUNTER 2018-08-31 22:23 | Observation (INO) ==
[2018-09-01 00:19] LABS: Basophils % 0.2 % (0.0-0.8); Eosinophils % 0.2 % (0.00-10.9); Hematocrit 24.3 VOL% (35.7-47.0); Hemoglobin 7.3 GM/DL (12.0-16.0); Lymphocytes # 0.9 10*3/uL (1.4-4.0); Lymphocytes % 17.9 % (21.3-54.2); Mean Corpuscular Hemoglobin 28 PG (27-34); Mean Corpuscular Volume 94.6 FL (87-102); Monocytes # 0.7 10*3/uL (0.11-0.8); Monocytes % 13.9 % (1.7-12.7); Neutrophils # 3.3 10*3/uL (1.4-7.4); Neutrophils % 65.8 % (38.7-73.9); Red Blood Count 2.57 MC/CUMM (3.8-5.5); Red Cell Distribution Width 17.2 % (9.3-17.3)
[2018-09-01 00:22] LABS: Platelet Count 23 T/CUMM (130-400)
[2018-09-01 00:47] LABS: Albumin 2.8 G/DL (3.4-5.0); Anisocytosis Slight; Band Neutrophils 1 % (0-10); Calcium 7.6 MG/DL (8.5-10.1); Eosinophils 2 % (0-10); Lymphocytes 26 % (20-55); Macrocytosis 1+; Osmolality,Calculated 292.7 MOS/KG (273-304); Platelet Estimate Decreased; Segmented Neutrophils 65 % (50-85); Total Cells Counted 100; Total Protein 6.6 G/DL (6.4-8.3)
[2018-09-01] MEDS ORDERED: ACETAMINOPHEN 325 MG TABLET PO PRN (01:39)
[2018-09-01] MEDS ORDERED: ONDANSETRON 4 MG/2 ML VIAL IV PRN (01:39)
[2018-09-01] MEDS ORDERED: FUROSEMIDE 40 MG/4 ML VIAL IV STA (01:44)
[2018-09-01] MEDS ORDERED: GLUCAGON 1 MG VIAL IM PRN (01:47)
[2018-09-01] MEDS ORDERED: DEXTROSE 50% 25 GM/50 ML VIAL IV PRN (01:47)
[2018-09-01] MEDS ORDERED: FUROSEMIDE 40 MG/4 ML VIAL ONE (02:30)
[2018-09-01 04:24] LABS: Apearance,Urine CLEAR (Clear); Bacteria,Urine Occasional /HPF (Few); Bilirubin,Urine Negative (Negative); Blood, Urine Small mg/dL (Negative); Glucose,Urine (UA) Negative (Negative); Ketones,Urine Negative (Negative); Mucus,Urine Occasional /LPF (Occasional); Nitrite,Urine Negative (Negative); Protein,Urine Negative; RBC,Urine 5 /HPF (0-4); Urine Color Straw (Yellow); Urine Specific Gravity 1.005 (1.001-1.035); Urine Urobilinogen < 2.0 EU/DL (0.2-1.0); WBC,Urine <1 /HPF (0-6)
[2018-09-01 05:50] LABS: Albumin 3.1 G/DL (3.4-5.0); Bilirubin,Total 0.7 MG/DL (0.2-1.0); Calcium 8.4 MG/DL (8.5-10.1); Total Protein 7.2 G/DL (6.4-8.3)
[2018-09-01 07:34] LABS: Basophils % 0.2 % (0.0-0.8); Hematocrit 25.7 VOL% (35.7-47.0); Hemoglobin 7.9 GM/DL (12.0-16.0); Immature Granulocytes % 1.8 %; Immature Granulocytes Absolute 0.09 #; Lymphocytes # 1.3 10*3/uL (1.4-4.0); Lymphocytes % 25.3 % (21.3-54.2); Mean Corpuscular HGB Conc 30.7 GM/DL (32-36); Mean Corpuscular Hemoglobin 29 PG (27-34); Mean Corpuscular Volume 93.5 FL (87-102); Monocytes # 0.7 10*3/uL (0.11-0.8); Neutrophils # 2.9 10*3/uL (1.4-7.4); Neutrophils % 57.7 % (38.7-73.9); Red Blood Count 2.75 MC/CUMM (3.8-5.5); Red Cell Distribution Width 17.2 % (9.3-17.3); White Blood Count 4.9 T/CUMM (4-12)
[2018-09-01 07:38] LABS: PT Patient Result 10.6 SECS; Platelet Count 23 T/CUMM (130-400)
[2018-09-01 07:52] LABS: Bilirubin,Total 1.2 MG/DL (0.2-1.0); Calcium 8.6 MG/DL (8.5-10.1); Potassium 3.9 MMOL/L (3.5-5.1); Total Protein 7.1 G/DL (6.4-8.3)
[2018-09-01 07:56] LABS: Atypical Lymphocytes Few; Hypochromasia 1+; Lymphocytes 29 % (20-55); Microcytosis Slight; Ovalocytes Slight; Platelet Estimate Decreased; Segmented Neutrophils 63 % (50-85); Total Cells Counted 100
[2018-09-01] MEDS ORDERED: SODIUM CHLORIDE 0.9% 1,000 ML IV PRN ×3 (10:10→20:35)
[2018-09-01] MEDS: FUROSEMIDE 40 MG/4 ML VIAL IV SCH ×2 (10:20→16:54)
[2018-09-01] MEDS: INSULIN REGULAR 100 UNIT/ML SUBCUT SCH ×4 (10:35→20:43)
[2018-09-01] MEDS: PANTOPRAZOLE 40 MG TABLET PO SCH (10:40)
[2018-09-01] MEDS ORDERED: INSULIN GLARGINE 100 UNIT/ML SUBCUT SCH (21:00)
[2018-09-01] MEDS: MAGNESIUM OXIDE 400 MG TABLET PO SCH (21:19)
[2018-09-01] MEDS: POTASSIUM CHLORIDE 20 MEQ TABLET PO SCH (21:19)
[2018-09-01] MEDS: METOPROLOL TARTRATE 100 MG TABLET PO SCH (21:19)
[2018-09-01] MEDS: FERROUS SULFATE 325 MG TABLET PO SCH (21:20)
[2018-09-02 05:33] LABS: Basophils % 0.3 % (0.0-0.8); Eosinophils % 0.3 % (0.00-10.9); Hematocrit 27.6 VOL% (35.7-47.0); Hemoglobin 8.6 GM/DL (12.0-16.0); Immature Granulocytes % 1.6 %; Immature Granulocytes Absolute 0.06 #; Lymphocytes # 1.2 10*3/uL (1.4-4.0); Lymphocytes % 30.7 % (21.3-54.2); Mean Corpuscular HGB Conc 31.2 GM/DL (32-36); Mean Corpuscular Hemoglobin 28 PG (27-34); Mean Corpuscular Volume 91.1 FL (87-102); Mean Platelet Volume 12.2 FL (9.6-12.0); Monocytes # 0.7 10*3/uL (0.11-0.8); Monocytes % 17.9 % (1.7-12.7); Neutrophils # 1.8 10*3/uL (1.4-7.4); Neutrophils % 49.2 % (38.7-73.9); Platelet Count 57 T/CUMM (130-400); Red Blood Count 3.03 MC/CUMM (3.8-5.5); Red Cell Distribution Width 17.4 % (9.3-17.3); White Blood Count 3.7 T/CUMM (4-12)
[2018-09-02 06:05] LABS: Calcium 8.1 MG/DL (8.5-10.1); Osmolality,Calculated 286.8 MOS/KG (273-304); Potassium 3.4 MMOL/L (3.5-5.1)
[2018-09-02] MEDS ORDERED: ALBUTEROL/IPRATROPIUM 3 ML NEB RESP TX SCH (07:00)
[2018-09-02 07:50] LABS: Lymphocytes 37 % (20-55); Platelet Estimate Decreased; Segmented Neutrophils 54 % (50-85); Total Cells Counted 100
[2018-09-02] MEDS ORDERED: FLUoxetine 10 MG CAPSULE PO SCH (09:00)
[2018-09-02] MEDS ORDERED: amLODIPine 10 MG TABLET PO SCH (09:00)
[2018-09-02] MEDS ORDERED: glipiZIDE 10 MG TABLET PO SCH (09:00)
[2018-09-02] MEDS: FUROSEMIDE 40 MG/4 ML VIAL IV SCH (09:39)
[2018-09-02] MEDS: MAGNESIUM OXIDE 400 MG TABLET PO SCH (09:39)
[2018-09-02] MEDS: PANTOPRAZOLE 40 MG TABLET PO SCH (09:39)
[2018-09-02] MEDS: FERROUS SULFATE 325 MG TABLET PO SCH (09:39)
[2018-09-02] MEDS: POTASSIUM CHLORIDE 20 MEQ TABLET PO SCH (09:40)
[2018-09-02] MEDS: METOPROLOL TARTRATE 100 MG TABLET PO SCH (09:40)
[2018-09-02] MEDS ORDERED: POTASSIUM CHLORIDE 20 MEQ TABLET PO ONE (10:43)
[2018-09-02] MEDS ORDERED: PNEUMOCOCCAL VACCINE (13 VALENT) 0.5 ML SYRINGE IM ONE (11:32)
[2018-09-02 14:22] VITALS: BP 153/66
[2018-09-02] MEDS: INSULIN REGULAR 100 UNIT/ML SUBCUT SCH (20:18)
== END 2018-09-02 12:10 | disposition home or self-care (01) ==
LOC: EDBD → EDUNIT# → N.ED 22:23 → N.EDINP 22:23 → N.5E 09-01 01:58
PROVIDERS: ADMIT Internal Medicine; ATTEND Internal Medicine